=== PATIENT | female | born 1965 | race Two or more races ===

== ENCOUNTER 2016-11-26 17:05 | Emergency (ER) | payer MEDICARE, OTHER ==
[~2016-11-26] VITALS: Ht 157.5 cm; Wt 89.8 kg
[~2016-11-26 17:05] MED LIST: IBUPROFEN600 M1 PO; NORCO 5-325 TA1 EACH ORAL; VALIUM10 MG ORAL
[2016-11-26] MEDS ORDERED: Cyclobenzaprine 10mg Tab ORAL ONE (18:00)
[2016-11-26] MEDS ORDERED: Acetaminophen 500mg (ES) tab PO ONE (18:00)
[2016-11-26] MEDS ORDERED: TYLENOL EXTRA500 MG ORAL (18:04)
[2016-11-26] MEDS ORDERED: CYCLOBENZAPRINE10 MG ORAL (18:04)
[2016-11-26 18:16] VITALS: BP_SYST 135; BP_SYST 139; BP_DIAS 102; BP_DIAS 85
[2016-11-26 18:24] VITALS: BP 139/102
--- NOTE | 2016-11-26 19:50 | Emergency Room Report ---
History of Present Illness General Chief Complaint: Head Injury Source: Patient Present Illness HPI 51-year-old female presents ED status post head injury. Patient's [employer] mechanical trip and fall in a store and fell forward hitting her head against a wall. Also hit her right knee. No reported LOC. Notes swelling to her forehead which has since improved. Denies any amnesia regarding events. Denies any nausea or vomiting. Pain is throbbing, 8/10, nonradiating. No other aggravating or relieving factors. States pain to the right knee but is able to bear weight. Denies any other injuries. Denies any other associated symptoms Allergies: Coded Allergies: IBUPROFEN (Verified Allergy, Unknown, 11/26/16) Patient History Past Medical History: HTN Past Surgical History: none Pertinent Family History: none Social History: Denies: alcohol use, drug use, smoking Last Menstrual Period: n/a Now: No Immunizations: UTD Reviewed Nursing Documentation: PMH: Agreed, PSxH: Agreed Nursing Documentation-PMH Past Medical History: No History, Except For Hx Hypertension: Yes Hx Gastrointestinal Problems: Yes - SICKLE CELL Review of Systems All Other Systems: negative except mentioned in HPI Physical Exam Vital Signs Date Time Temp Pulse Resp B/P Pulse Ox O2 Delivery O2 Flow Rate FiO2 11/26/16 17:39 98.1 86 16 152/98 97 Room Air Sp02 EP Interpretation: reviewed, normal General Appearance: no apparent distress, alert, GCS 15, non-toxic Head: normocephalic, other - 3x3cm nonexpansive hematoma to R side forehead. no bleeding. no bruising Eyes: bilateral eye PERRL, bilateral eye normal inspection ENT: hearing grossly normal, normal pharynx, no angioedema, normal voice, other - no hernandez sign Neck: normal inspection Respiratory: normal inspection Cardiovascular #1: normal inspection Gastrointestinal: normal inspection Rectal: deferred Genitourinary: no CVA tenderness Musculoskeletal: tender - R knee - full ROM noted. no deformity Neurologic: alert, oriented x3, responsive, motor strength/tone normal, sensory intact, speech normal Psychiatric: normal inspection Skin: normal inspection Lymphatic: normal inspection Procedures Splinting Splinting : Consent: Verbal Pre-Made Type: DEJON wrap - R knee Pre-Proc Neuro Vasc Exam: normal Post-Proc Neuro Vasc Exam: normal Patient Tolerated: Well Complications: None Medical Decision Making Diagnostic Impression: Primary Impression: Knee contusion Qualified Codes: S80.01XA - Contusion of right knee, initial encounter Additional Impression: Acute head injury Qualified Codes: S09.90XA - Unspecified injury of head, initial encounter ER Course Hospital Course 51-year-old female presents ED complaining of headache s/p trip and fall. c/o R knee pain Differential diagnoses include: cspine injury, muscle strain, nasal bone Fx, concussion Clinical course Patient placed on stretcher. After initial history, my physical exam reveals a middle aged female in no acute distress. There is a non-extensive hematoma to the forehead. No crepitus or evidence of skull fracture. No hemotympanum. No hernandez sign. No C-spine tenderness. There is full range of motion to right knee no deformity suggestive of fracture. Patient declined x-rays at this time. I do not believe patient requires head CT imaging at this time. Dejon wrap applied to R knee. Given Tylenol and Flexeril in ED. Given return instructions for delayed head injury concern (unsteady gait, confusion, lethargy , vomiting) Diagnosis - head injury, knee contusion Stable and discharged to home with Rx Tylenol, Flexeril. apply cold compresses to forehead. Followup with PMD. Return to ED if symptoms recur or worsen Last Vital Signs Date Time Temp Pulse Resp B/P Pulse Ox O2 Delivery O2 Flow Rate FiO2 11/26/16 18:24 98.0 16 139/102 97 Room Air 11/26/16 18:16 96 Status: improved Disposition: HOME, SELF-CARE Condition: Stable Scripts Cyclobenzaprine Hcl* (FLEXERIL*) 10 Mg Tablet 10 MG ORAL TID Y for Muscle Spasm, #20 TAB Prov: THAD GOMEZ M.D. 11/26/16 Acetaminophen* (TYLENOL EXTRA STRENGTH*) 500 Mg Tablet 500 MG ORAL Q8H Y for Prn Headache/Temp > 101, #30 TAB 0 Refills Prov: THAD GOMEZ M.D. 11/26/16 Patient Instructions: Head Injury, Adult, [id number] THAD GOMEZ M.D. Nov 26, 2016 19:50
== END 2016-11-26 18:25 | disposition home or self-care (01) ==
LOC: EMR 17:59
DX: S80.01XA Contusion of right knee, initial encounter (principal); S09.90XA Unspecified injury of head, initial encounter; I10 Essential (primary) hypertension; D57.1 Sickle-cell disease without crisis; W01.198A Fall on same level from slipping, tripping and stumbling with subsequent striking against other object, initial encounter; Y92.89 Other specified places as the place of occurrence of the external cause
CPT/HCPCS: 29530; 99284

== ENCOUNTER 2016-11-28 10:22 | Emergency (ER) | payer MEDICARE, OTHER ==
[~2016-11-28] VITALS: Ht 157.5 cm; Wt 89.8 kg
[~2016-11-28 10:22] MED LIST changes: +CYCLOBENZAPRINE10 MG ORAL; +TYLENOL EXTRA500 MG ORAL
[2016-11-28 13:02] VITALS: BP 149/99
[2016-11-28 13:05] VITALS: BP 149/99
--- NOTE | 2016-11-28 13:10 | Emergency Room Report ---
History of Present Illness General Chief Complaint: Pain Source: Patient Present Illness HPI 51YOF presents again for continued frontal headache after fall. Was seen here a few days ago for same. Patient elected against CT head at that time. She denies LOC from fall. Taking tylenol/flexeril as RXed by ED physician with mild improvement. Denies nausea/vomiting, blurry or change of vision. Allergies: Coded Allergies: IBUPROFEN (Verified Allergy, Unknown, 11/26/16) Patient History Past Medical History: none Past Surgical History: none Pertinent Family History: none Social History: Denies: alcohol use, drug use, smoking Now: No Immunizations: UTD Reviewed Nursing Documentation: PMH: Agreed, PSxH: Agreed Nursing Documentation-PMH Hx Hypertension: Yes - sickle cell anemia Hx Gastrointestinal Problems: Yes - SICKLE CELL Review of Systems All Other Systems: negative except mentioned in HPI Physical Exam Vital Signs Date Time Temp Pulse Resp B/P Pulse Ox O2 Delivery O2 Flow Rate FiO2 11/28/16 10:29 97.5 93 18 151/100 100 Room Air Sp02 EP Interpretation: reviewed, normal General Appearance: normal inspection, well appearing, no apparent distress, alert, GCS 15, non-toxic Head: normocephalic, other - Small 1cm hematoma frontal head Eyes: bilateral eye EOMI, bilateral eye PERRL ENT: normal ENT inspection, hearing grossly normal, normal voice Neck: normal inspection, full range of motion, supple, no bony tend Respiratory: normal inspection, lungs clear, normal breath sounds, no respiratory distress, no retraction, no wheezing Cardiovascular #1: regular rate, rhythm, no edema Gastrointestinal: normal inspection, normal bowel sounds, non tender, soft, no guarding, no hernia Genitourinary: no CVA tenderness Musculoskeletal: normal inspection, back normal, normal range of motion, Jerod' s Sign negative Neurologic: normal inspection, alert, oriented x3, responsive, statistical reporting analyst III-XII nml as tested, motor strength/tone normal, speech normal Psychiatric: normal inspection, judgement/insight normal, mood/affect normal Skin: normal inspection Lymphatic: normal inspection Medical Decision Making Diagnostic Impression: Primary Impression: Pain ER Course 51YO F with 2 days headache after fall. VSS. Afebrile. GCS 15 CT head negative Analgesia provided Possible concussion Advised PMD followup for Neuro referral Last Vital Signs Date Time Temp Pulse Resp B/P Pulse Ox O2 Delivery O2 Flow Rate FiO2 11/28/16 13:05 97.5 75 18 149/99 100 Room Air Status: improved Disposition: HOME, SELF-CARE Condition: Improved Referrals: NON PHYSICIAN (PCP) Patient Instructions: Concussion, Adult, [id number] Additional Instructions: - Your CT head does not show acute injury - You may have a concussion - please read the given information and followup with your primary care doctor. You need to see a Neurologist as an outpatient. - Continue to take Tylenol for pain - apply ice to area of pain on front of head as well. LAUREN ASTORGA M.D. Nov 28, 2016 13:10
--- NOTE | 2016-11-28 13:46 | Diagnostic Imaging Report ---
Indications: Fall, head trauma, pain Technique: Continuous helical CT imaging of the brain was performed with automatic exposure control on a Siemens sensation [address] scanner. Axial and coronal images were reconstructed at 5 mm slice thickness and interval. CTDI volume(s): 70 mGy Total DLP: 1390 mGy-cm Findings: Comparison: None. Intracranial anatomy is unremarkable. No evidence of mass or hemorrhage, other attenuation abnormality, mass effect, midline shift, hydrocephalus or increased intracranial pressure. Bone window images are unremarkable. Visualized paranasal sinuses and mastoid air cells are clear. IMPRESSION: Negative noncontrast CT scan of the brain --no evidence of acute injury. The CT scanner at [facility] is accredited by the [employer] and the scans are performed using protocols designed to limit radiation exposure to as low as reasonably achievable to attain images of sufficient resolution adequate for diagnostic evaluation.
== END 2016-11-28 13:12 | disposition home or self-care (01) ==
LOC: EMR 11:02
DX: R51 Headache (principal); S00.83XA Contusion of other part of head, initial encounter; W19.XXXA Unspecified fall, initial encounter; Y92.89 Other specified places as the place of occurrence of the external cause; I10 Essential (primary) hypertension; D57.1 Sickle-cell disease without crisis; Z88.6 Allergy status to analgesic agent
CPT/HCPCS: 70450; 99284